=== PATIENT | female | born 1965 | race Caucasian/White ===

== ENCOUNTER → 2024-07-10 | Outpatient (CLI) | payer MEDICAID, SELFPAY ==
--- NOTE | 2024-07-10 13:13 | XR_ITS ---
Examination: Lumbar spine examination 3 views TECHNIQUE: AP lateral coned lateral lower lumbar spine 3 views Exam date and time: July 10, 2024 1336 hours INDICATIONS: Neck pain lower back pain 10 years FINDINGS: Prominent osteopenia No lumbar fracture Moderate disc narrowing posteriorly L5-S1 Moderate lumbar spondylosis No spondylolisthesis IMPRESSION: Moderate disc narrowing posteriorly L5-S1
--- NOTE | 2024-07-10 13:13 | XR_ITS ---
Examination: Cervical spine 3 views Technique one AP lateral coned AP odontoid cervical spine 3 views Exam date and time: July 10, 2024 1327 hours INDICATIONS: Neck pain 10 years. FINDINGS: Prominent osteopenia Moderate to advanced degenerative disc disease C5-C6, C6-C7 No cervical fracture Intact odontoid IMPRESSION: Moderate to advanced degenerative disc disease C5-C6, C6-C7 Incidental note significant soft tissue carotid vascular calcification, consider correlation with carotid Doppler sonography follow-up
== END | disposition home or self-care (01) ==
PROVIDERS: Referring Provider Nurse Practitioner Family; Visit Provider Nurse Practitioner Family
DX: M50.322 Other cervical disc degeneration at C5-C6 level (principal); I65.29 Occlusion and stenosis of unspecified carotid artery; M48.07 Spinal stenosis, lumbosacral region
CPT/HCPCS: 72040; 72100

== ENCOUNTER → 2024-08-13 | Outpatient (CLI) | payer MEDICAID, SELFPAY ==
--- NOTE | 2024-08-13 17:00 | XR_ITS ---
Examination: CT chest, without intravenous contrast. Sagittal and coronal 2-D reconstructions. Exam date and time: August 13, 2024 at 1713 hrs. Indications: Nicotine dependence, smoking 45 years, coughing 2 months CTDI:vol (mGy) 7.53 DLP: (mGycm) 272 Technique: Multiple 3.0 mm axial sections of the chest to been obtained. Bone and lung density settings are obtained. Sagittal and coronal 2-D reconstructions have been obtained. Low dose protocols were performed. One or more of the following dose reduction techniques were used; automated exposure control, adjustment of the mA and/or KV according to patient size, use of iterative reconstruction technique. Findings: No thoracic aortic aneurysmal dilatation Pulmonary artery segments are not enlarged No paratracheal tracheobronchial or bronchopulmonary adenopathy COPD with multiple areas of airspace destruction as well as restrictive airways disease pattern No lobar pneumonia or pulmonary edema or pleural disease Axial image 124 demonstrates 13 mm low-density upper right lobe liver lesion Contracted gallbladder Spleen is not enlarged No pancreatic mass Impression: No mediastinal lymphadenopathy No pneumonia, pulmonary edema, pleural disease or pulmonary nodules 13 mm low-density upper right lobe liver lesion, recommend MRI abdomen liver follow-up, pre and postcontrast
== END | disposition home or self-care (01) ==
PROVIDERS: PCP Physician Assistant; Referring Provider Physician Assistant; Visit Provider Physician Assistant
DX: K76.9 Liver disease, unspecified (principal); F17.210 Nicotine dependence, cigarettes, uncomplicated
CPT/HCPCS: 71250

== ENCOUNTER → 2024-09-06 | Outpatient (CLI) | payer MEDICAID, SELFPAY ==
--- NOTE | 2024-09-06 16:00 | XR_ITS ---
Examination: MRI abdomen with intravenous contrast. MRI abdomen without intravenous contrast. Date and time of exam: September 06, 2024 1632 hrs. Indications: CT examination chest abdomen August 13, 2024 13 mm right lobe liver lesion Technique: Multiple axial, sagittal and coronal sections of the abdomen obtained. Transverse images, TR 6020, TE 107. T1 weighted transverse images, TR 582, TE 9.5. T2-weighted sagittal images, TR 4000, TE 105. T2-weighted sagittal images, TR 4000, TE 5. Coronal images, TR 4210, TE 107. Axial and coronal images are obtained post 19 cc intravenous injection, gadolinium. Findings: No definite enhancing liver lesion noted on the postcontrast studies Contracted gallbladder Spleen is not enlarged No pancreatic mass Aorta normal size No ascites No extrahepatic biliary tract dilatation No gallstones Impression: No definite liver lesion confirmed Recommend 6 month follow-up hepatic sonography
== END | disposition home or self-care (01) ==
PROVIDERS: PCP Physician Assistant; Referring Provider Physician Assistant; Visit Provider Physician Assistant
DX: K76.89 Other specified diseases of liver (principal)
CPT/HCPCS: 74183; A9579